=== PATIENT | male | born 1980 | race Caucasian/White ===

== ENCOUNTER 2024-08-08 02:50 | Inpatient (IN) | payer OTHER ==
[~2024-08-08] VITALS: Ht 185.4 cm; Wt 92.0 kg
[2024-08-08] MEDS ORDERED: CALC500T37 PO (03:15)
[2024-08-08] MEDS ORDERED: ACET-2247 PO (03:15)
[2024-08-08] MEDS ORDERED: CALC625T9 PO (03:15)
[2024-08-08] MEDS ORDERED: SILV20CR11 TP (03:15)
[2024-08-08] MEDS ORDERED: SUMA25TA15 PO (03:15)
[2024-08-08] MEDS ORDERED: OMEP-148 PO (03:15)
[2024-08-08 04:20] LABS: BASOPHILS % (AUTO) 0.5 % (0.0-2.0); EOSINOPHILS % (AUTO) 0.8 % (1.0-6.0); HEMATOCRIT 42.2 % (41-53); LYMPHOCYTES # (AUTO) 1.5 K/uL (1.0-4.8); LYMPHOCYTES % (AUTO) 20.9 % (22.0-44.0); MEAN CORPUSCULAR HEMOGLOBIN 30.7 pg (26.0-34.0); MEAN CORPUSCULAR HGB CONC 33.2 G/dL (31.0-37.0); MEAN CORPUSCULAR VOLUME 92 fL (80-100); MONOCYTES # (AUTO) 0.6 K/uL (0.1-1.0); MONOCYTES % (AUTO) 8.6 % (2.0-9.0); NEUTROPHILS # (AUTO) 5.1 K/uL (1.8-7.7); NEUTROPHILS % (AUTO) 69.2 % (40.0-70.0); PLATELET COUNT (AUTO) 274 K/uL (150-450); RED BLOOD CELL COUNT(AUTO) 4.56 MIL/uL (4.50-5.90); RED CELL DISTRIBUTION WIDTH 14.1 % (11.5-14.5); WHITE BLOOD COUNT (AUTO) 7.4 K/uL (4.5-11.0)
[2024-08-08 04:30] LABS: ANION GAP 6 mmol/L (8-16); CALCIUM, TOTAL 8.8 mg/dL (8.8-10.5); CARBON DIOXIDE 28 mmol/L (22-29); CHLORIDE 103 mmol/L (98-107); CREATININE 0.86 mg/dL (0.60-1.30); GLOMERULAR FILTR. RATE CALC > 60 mL/min (>60); GLUCOSE,RANDOM 105 mg/dL (70-110); POTASSIUM 4.1 mmol/L (3.5-5.1); SODIUM SERUM 137 mmol/L (136-145); UREA NITROGEN, BLOOD 9 mg/dL (7-18)
[2024-08-08 04:42] LABS: TROPONIN I-HIGH SENSITIVITY 4 ng/L (<76)
[2024-08-08] MEDS: TraMADol HCL 50 MG TABLET PO ONE (04:46)
[2024-08-08] MEDS: KETOROLAC TROMETHAMINE 30 MG/ML VIAL IM ONE (05:31)
[2024-08-08] MEDS: DIAZEPAM 5 MG TABLET PO ONE (07:12)
[2024-08-08 09:31] VITALS: BP 117/70; PULSE 61; RESP 18; TEMP 97.9; O2SAT 97
[2024-08-08] MEDS ORDERED: SUMAtriptan SUCCINATE 25 MG TABLET PO PRN (11:15)
[2024-08-08] MEDS ORDERED: ONDANSETRON HCL 4 MG/2 ML VIAL IVP PRN (11:15)
[2024-08-08] MEDS ORDERED: BISACODYL 10 MG RECTAL RECTAL SUPPOSITORY PR PRN (11:15)
[2024-08-08] MEDS ORDERED: ZOLPIDEM TARTRATE 5 MG TABLET PO PRN (11:15)
[2024-08-08] MEDS: SODIUM CHLORIDE 0.9% 1,000 ML IV ONE (12:48)
[2024-08-08] MEDS: VANCOMYCIN 1.5 GM/WATER(PEG) 300 ML IV ONE (12:49)
[2024-08-08] MEDS: MORPHINE SULFATE 2 MG/ML SYRINGE IVP PRN (12:57)
[2024-08-08] MEDS: HEPARIN SODIUM,PORCINE 5,000 UNITS/ML VIAL SQ SCH (16:04)
[2024-08-08] MEDS: HYDROCODONE/ACETAMINOPHEN 5-325 MG TABLET PO PRN (17:37)
[2024-08-08 19:46] VITALS: BP 120/74; PULSE 67; RESP 18; TEMP 97.5; O2SAT 98
[2024-08-08] MEDS: DOCUSATE SODIUM 100 MG CAPSULE PO SCH (20:41)
[2024-08-08] MEDS: CALCIUM POLYCARBOPHIL 625 MG TABLET PO SCH (20:41)
[2024-08-08] MEDS: VANCOMYCIN 1GM/WATER(PEG/NADA) 200 ML IV SCH (23:50)
[2024-08-09 05:15] VITALS: BP 113/62; PULSE 62; RESP 18; TEMP 97.5; O2SAT 99
[2024-08-09 07:43] LABS: BASOPHILS % (AUTO) 0.4 % (0.0-2.0); EOSINOPHILS % (AUTO) 1.9 % (1.0-6.0); HEMATOCRIT 42.5 % (41-53); HEMOGLOBIN 14.1 g/dL (13.5-17.5); LYMPHOCYTES # (AUTO) 1.6 K/uL (1.0-4.8); LYMPHOCYTES % (AUTO) 25.5 % (22.0-44.0); MEAN CORPUSCULAR HEMOGLOBIN 30.7 pg (26.0-34.0); MEAN CORPUSCULAR HGB CONC 33.2 G/dL (31.0-37.0); MEAN CORPUSCULAR VOLUME 93 fL (80-100); MONOCYTES # (AUTO) 0.5 K/uL (0.1-1.0); MONOCYTES % (AUTO) 8.5 % (2.0-9.0); NEUTROPHILS # (AUTO) 3.9 K/uL (1.8-7.7); NEUTROPHILS % (AUTO) 63.7 % (40.0-70.0); PLATELET COUNT (AUTO) 263 K/uL (150-450); RED CELL DISTRIBUTION WIDTH 14.2 % (11.5-14.5); WHITE BLOOD COUNT (AUTO) 6.1 K/uL (4.5-11.0)
[2024-08-09 07:53] LABS: ANION GAP 6 mmol/L (8-16); CALCIUM, TOTAL 8.8 mg/dL (8.8-10.5); CARBON DIOXIDE 27 mmol/L (22-29); CHLORIDE 104 mmol/L (98-107); CREATININE 0.84 mg/dL (0.60-1.30); GLOMERULAR FILTR. RATE CALC > 60 mL/min (>60); GLUCOSE,RANDOM 92 mg/dL (70-110); POTASSIUM 4.3 mmol/L (3.5-5.1); SODIUM SERUM 137 mmol/L (136-145); UREA NITROGEN, BLOOD 11 mg/dL (7-18)
[2024-08-09 08:33] VITALS: BP 108/69; PULSE 72; RESP 18; TEMP 97.7; O2SAT 100
[2024-08-09] MEDS: PANTOPRAZOLE SODIUM 40 MG DR TABLET PO SCH (08:38)
[2024-08-09 09:50] LABS: ERYTHROCYTE SEDIMENTATION RATE 5 MM/HR (0-15)
[2024-08-10 04:15] VITALS: BP 119/77; PULSE 59; RESP 18; TEMP 97.7; O2SAT 97
[2024-08-10 07:07] LABS: BASOPHILS % (AUTO) 0.5 % (0.0-2.0); EOSINOPHILS % (AUTO) 1.7 % (1.0-6.0); HEMATOCRIT 44.5 % (41-53); LYMPHOCYTES # (AUTO) 1.8 K/uL (1.0-4.8); LYMPHOCYTES % (AUTO) 30.7 % (22.0-44.0); MEAN CORPUSCULAR HGB CONC 33.7 G/dL (31.0-37.0); MEAN CORPUSCULAR VOLUME 92 fL (80-100); MONOCYTES # (AUTO) 0.5 K/uL (0.1-1.0); MONOCYTES % (AUTO) 7.6 % (2.0-9.0); NEUTROPHILS # (AUTO) 3.6 K/uL (1.8-7.7); NEUTROPHILS % (AUTO) 59.5 % (40.0-70.0); PLATELET COUNT (AUTO) 271 K/uL (150-450); RED BLOOD CELL COUNT(AUTO) 4.83 MIL/uL (4.50-5.90)
[2024-08-10 07:16] LABS: ANION GAP 7 mmol/L (8-16); CALCIUM, TOTAL 9.1 mg/dL (8.8-10.5); CARBON DIOXIDE 28 mmol/L (22-29); CHLORIDE 103 mmol/L (98-107); CREATININE 0.87 mg/dL (0.60-1.30); GLOMERULAR FILTR. RATE CALC > 60 mL/min (>60); GLUCOSE,RANDOM 93 mg/dL (70-110); POTASSIUM 4.1 mmol/L (3.5-5.1); SODIUM SERUM 138 mmol/L (136-145); UREA NITROGEN, BLOOD 13 mg/dL (7-18)
[2024-08-10 07:46] VITALS: BP 119/83; PULSE 59; RESP 18; TEMP 97.7; O2SAT 59
[2024-08-10 20:05] VITALS: BP 111/80; PULSE 60; RESP 19; TEMP 97.9; O2SAT 96
[2024-08-11 05:03] VITALS: BP 112/88; PULSE 66; RESP 18; TEMP 97.5; O2SAT 95
[2024-08-11 07:06] LABS: BASOPHILS % (AUTO) 0.5 % (0.0-2.0); EOSINOPHILS % (AUTO) 1.9 % (1.0-6.0); HEMATOCRIT 45.3 % (41-53); HEMOGLOBIN 15.3 g/dL (13.5-17.5); LYMPHOCYTES # (AUTO) 1.5 K/uL (1.0-4.8); LYMPHOCYTES % (AUTO) 22.8 % (22.0-44.0); MEAN CORPUSCULAR HEMOGLOBIN 30.9 pg (26.0-34.0); MEAN CORPUSCULAR HGB CONC 33.7 G/dL (31.0-37.0); MEAN CORPUSCULAR VOLUME 92 fL (80-100); MONOCYTES # (AUTO) 0.5 K/uL (0.1-1.0); MONOCYTES % (AUTO) 8.1 % (2.0-9.0); NEUTROPHILS # (AUTO) 4.3 K/uL (1.8-7.7); NEUTROPHILS % (AUTO) 66.7 % (40.0-70.0); PLATELET COUNT (AUTO) 274 K/uL (150-450); RED BLOOD CELL COUNT(AUTO) 4.95 MIL/uL (4.50-5.90); WHITE BLOOD COUNT (AUTO) 6.5 K/uL (4.5-11.0)
[2024-08-11 07:09] LABS: ANION GAP 10 mmol/L (8-16); CALCIUM, TOTAL 9.3 mg/dL (8.8-10.5); CARBON DIOXIDE 27 mmol/L (22-29); CHLORIDE 102 mmol/L (98-107); CREATININE 0.82 mg/dL (0.60-1.30); GLOMERULAR FILTR. RATE CALC > 60 mL/min (>60); GLUCOSE,RANDOM 94 mg/dL (70-110); POTASSIUM 4.1 mmol/L (3.5-5.1); SODIUM SERUM 139 mmol/L (136-145); UREA NITROGEN, BLOOD 13 mg/dL (7-18)
[2024-08-11] MEDS: MAGNESIUM HYDROXIDE SUSPENSION 30 ML UDCUP PO PRN (07:56)
[2024-08-11 08:11] VITALS: BP 118/72; PULSE 65; RESP 18; TEMP 97.8; O2SAT 94
[2024-08-11] MEDS: TraMADol HCL 50 MG TABLET PO PRN (13:56)
[2024-08-11 20:00] VITALS: BP 124/83; PULSE 67; RESP 18; TEMP 98.4; O2SAT 96
[2024-08-11] MEDS: ACETAMINOPHEN 325 MG TABLET PO PRN (20:34)
[2024-08-12 04:45] VITALS: BP 124/87; PULSE 77; RESP 18; TEMP 97.5; O2SAT 99
[2024-08-12 07:50] LABS: ANION GAP 7 mmol/L (8-16); CALCIUM, TOTAL 9.2 mg/dL (8.8-10.5); CARBON DIOXIDE 31 mmol/L (22-29); CHLORIDE 101 mmol/L (98-107); CREATININE 0.85 mg/dL (0.60-1.30); GLOMERULAR FILTR. RATE CALC > 60 mL/min (>60); GLUCOSE,RANDOM 92 mg/dL (70-110); POTASSIUM 4.4 mmol/L (3.5-5.1); SODIUM SERUM 139 mmol/L (136-145); UREA NITROGEN, BLOOD 15 mg/dL (7-18)
[2024-08-12 08:18] VITALS: BP 120/74; PULSE 67; RESP 19; TEMP 97.9; O2SAT 98
[2024-08-12 19:41] VITALS: BP 123/73; PULSE 57; RESP 19; TEMP 97.3; O2SAT 96
[2024-08-13 04:58] VITALS: BP 118/72; PULSE 74; RESP 18; TEMP 97.7; O2SAT 100
[2024-08-13 09:00] VITALS: BP 114/80; PULSE 59; RESP 18; TEMP 97.9; O2SAT 96
[2024-08-13 11:00] VITALS: BP 127/81; PULSE 63; RESP 18; O2SAT 98
[2024-08-13 19:50] VITALS: BP 124/72; PULSE 77; RESP 20; TEMP 97.5; O2SAT 98
[2024-08-13] MEDS: TraMADol HCL 50 MG TABLET PO PRN (20:12)
[2024-08-14 04:20] VITALS: BP 116/82; PULSE 69; RESP 20; TEMP 97.7; O2SAT 98
[2024-08-14 09:40] VITALS: BP 122/78; PULSE 65; RESP 20; TEMP 97.7; O2SAT 95
[2024-08-14 19:38] VITALS: BP 135/83; PULSE 78; RESP 20; TEMP 98.1; O2SAT 95
== END 2024-08-14 21:30 | DRG 603 ==
LOC: EMS 03:02 → EDH 07:09 → 6S 09:20
PROVIDERS: ADMIT Internal Medicine; ATTEND Internal Medicine
DX: L03.115 Cellulitis of right lower limb (principal); K21.9 Gastro-esophageal reflux disease without esophagitis; F31.9 Bipolar disorder, unspecified; G43.909 Migraine, unspecified, not intractable, without status migrainosus; H91.3 Deaf nonspeaking, not elsewhere classified; F43.10 Post-traumatic stress disorder, unspecified; M62.831 Muscle spasm of calf; M48.07 Spinal stenosis, lumbosacral region; Z79.899 Other long term (current) drug therapy
CPT/HCPCS: 72148; 73700; 80048; 80202; 83735; 84484; 85025; 85651; 93005; 93926; 93971; 96372; 97110; 97116; 97161; 97530; 99285; J1644; J1885; J2270; J7030